=== PATIENT | female | born 1965 | race Caucasian/White ===

== ENCOUNTER 2018-04-10 09:30 | Inpatient (IN) | payer MEDICARE, MEDICAID ==
--- NOTE | 2018-04-10 09:41 | ED ---
Neurological HPI - HPI Summary HPI Summary: This pt is a 52 y/o female presenting to [facility] via EMS from [facility] for a seizure this morning. EMS reports pt had a seizure at 06:20 today and pt laid herself down. No trauma associated. Per EMS, staff stated yesterday pt started acting different and was not speaking much today. At baseline pt is able to speak all the time. Per EMS, today staff reported pt was shaking and had more noticeable slurred speech, and decided to call the ambulance. EMS states pt is repetitive, has a gaze to the right, and head turns to the right. Per EMS, BG is 105. Facility staff member, Cynthia Rios, reports pt had a seizure on the fast food shift lead , she did not witness it. Supply Chain Systems Manager notes pt has slurred speech, unable to form a sentence, shaking "uncontrollably," and can hardly move or walk. Additionally beehive kiln supervisor states pt has lost a lot of weight, "ever since she started taking Liverpool." Pt denies any pain. Pt was started on Liverpool 1 month ago. Per beehive kiln supervisor, pt was started on levothyroxine 02/04/18 and dose was decreased a couple days after this. PMHx: includes moderate MR, seizure disorder, impulse control disorder, hypothyroidism, leukopenia, hyponatremia. Per facility records, pt eats, grooms, and dresses independently. She is fully ambulatory. Pt will mimic same things as other and touches same thing as others. Pt needs directions to avoid others' spaces. Medications includes Depakote, zonegran, Tegretol. Today she was given Depakote and Tegretol. HPI is limited due to level 5 caveat - pt with MR. - History of Current Complaint Stated Complaint: AMS Hx Obtained From: Patient, Family/Supply Chain Systems Manager - beehive kiln supervisor, EMS, Medical Records Onset/Duration: Sudden Onset Timing: Sudden Onset Current Severity: Moderate Pain Intensity: 0 Pain Scale Used: 0-10 Numeric Character: Other: - POS: slurred speech, seizure, shaking Aggravating: Nothing Alleviating: Nothing Associated Signs and Symptoms: Positive: Seizure, Impaired Speech - slurred speech. Negative: Pain, Fever - Allergy/Home Medications Allergies/Adverse Reactions: Allergies Allergy/AdvReac Type Severity Reaction Status Date / Time No Known Allergies Allergy Verified 04/10/18 10:08 Home Medications: Home Medications Acetaminophen TAB* [Tylenol TAB*] 650 mg PO Q4H PRN 04/10/18 [History Confirmed 04/10/18] Carbamide Peroxide 6.5% OTIC* [DEBROX 6.5% Otic*] 4 drop BOTH EARS WEEKLY [History Confirmed 04/10/18] Divalproex ER TAB(*) [Depakote ER TAB(*)] 1,000 mg PO QAM 04/10/18 [History Confirmed 04/10/18] Divalproex ER TAB(*) [Depakote ER TAB(*)] 1,500 mg PO BEDTIME 04/10/18 [History Confirmed 04/10/18] Hydrocortisone 1% CREAM* [Hytone Cream 1%*] 1 applic TOPICAL QID PRN 04/10/18 [ History Confirmed 04/10/18] Levothyroxine TAB* [Synthroid TAB*] 112 mcg PO 0800 04/10/18 [History Confirmed 04/10/18] Liverpool Carbonate ER TAB* 900 mg PO BEDTIME 04/10/18 [History Confirmed 04/10/18 ] Neomycin/Polym/Bacit TOP OINT* [Neosporin TOP OINT TUBE*] 1 applic TOPICAL BID PRN 04/10/18 [History Confirmed 04/10/18] Zonisamide [Zonegran] 400 mg PO BEDTIME 04/10/18 [History Confirmed 04/10/18] carBAMazepine TAB(*) [TEGretol TAB(*)] 400 mg PO TID 04/10/18 [History Confirmed 04/10/18] PMH/Surg Hx/FS Hx/Imm Hx Endocrine/Hematology History: Reports: Hx Thyroid Disease - hypothyroidism, Other Endocrine/Hematological Disorders - POS: leukopenia, hyponatremia Neurological History: Reports: Hx Developmental Delay - moderate MR, Hx Seizures Psychiatric History: Reports: Other Psychiatric Issues/Disorders - Impulse control disorder - Family History Known Family History: Positive: Unknown - due to level 5 caveat - pt with MR - Social History Alcohol Use: None Substance Use Type: Reports: None Smoking Status (MU): Never Smoked Tobacco Review of Systems - ROS Summary Review of Systems Summary: ROS IS LIMITED DUE TO LEVEL 5 CAVEAT - pt with MR Constitutional: Other - POS: weight loss Negative: Fever Negative: Chest Pain Negative: Abdominal Pain Negative: Arthralgia, Myalgia Neurological: Other - POS: seizure, shaking uncontrollably, slurred speech All Other Systems Reviewed And Are Negative: No Physical Exam - Summary Physical Exam Summary: Constitutional: Well-developed, Well-nourished, Alert. (-) Distressed Skin: Warm, Dry HENT: Normocephalic; Atraumatic Eyes: Conjunctiva normal Neck: Musculoskeletal ROM normal neck. (-) JVD, (-) Stridor, (-) Tracheal deviation Cardio: Rhythm regular, rate normal, Heart sounds normal; Intact distal pulses; The pedal pulses are 2+ and symmetric. Radial pulses are 2+ and symmetric. (-) Murmur Pulmonary/Chest wall: Effort normal. (-) Respiratory distress, (-) Wheezes, (-) Rales Abd: Soft. (-) Tenderness, (-) Distension, (-) Guarding, (-) Rebound Musculoskeletal: (-) Edema Lymph: (-) Cervical adenopathy Neuro: Alert, Oriented x3, Strength normal, Cranial nerves II-XII are grossly intact, at baseline. (-) Dysmetria, (-) Nystagmus, (-) Ataxia by finger to nose testing, (-) Sensory deficit. Pt with slurred speech. Psych: Mood and affect Normal Triage Information Reviewed: Yes Vital Signs On Initial Exam: Temperature: 98.1 F Pulse: 83 Respiratory Rate: 19 O2 saturation: 100 Blood Pressure: 97/83 Vital Signs Reviewed: Yes Completion Of Physical Exam Limited Due To: Level 5 - pt with MR Diagnostics - Laboratory Result Diagrams: 04/10/18 09:16 04/10/18 09:16 Lab Statement: Any lab studies that have been ordered have been reviewed, and results considered in the medical decision making process. - Radiology Chest XR Radiology Interpretation Completed By: Radiologist Summary of Radiographic Findings: IMPRESSION: No active cardiopulmonary disease is noted. Dr. Joseph has reviewed this report. - CT Brain CT CT Interpretation Completed By: Radiologist Summary of CT Findings: IMPRESSION: No acute intracranial pathology. Multifocal encephalomalacia consistent with remote infarct. Dr. Joseph has reviewed this report. - EKG 10:15 Cardiac Rate: NL - at 76 bpm EKG Rhythm: Sinus Rhythm Summary of EKG Findings: No STEMI. NIH Scale - NIH Scale Level of Consciousness: Alert/Keenly Responsive Ask Patient the Month and His/Her Age: Both Correct Ask Pt to Open/Close Eyes and Recorder Helper Gravity Prospecting/Release Non-Paretic Hand: Both Correctly Best Gaze (Only Horizontal Eye Movement): Normal Visual Field Testing: No Visual Loss Facial Paresis-Pt to Smile & Close Eyes or Grimace Symmetry: Normal/Symmetrical Motor Function - Right Arm: No Drift-Holds 10 Seconds Motor Function - Left Arm: No Drift-Holds 10 Seconds Motor Function - Right Leg: No Drift-Holds 10 Seconds Motor Function - Left Leg: No Drift-Holds 10 Seconds Limb Ataxia-Must be out of Proportion to Weakness Present: Absent Sensory (Use Pinprick to Test Arms/Legs/Trunk/Face): Normal Best Language (Describe Picture, Name Items): No Aphasia Dysarthria (Read Several Words): Slurs Some Words Extinction and Inattention: No Abnormality Total Score: 1 Course/Dx - Course Assessment/Plan: Pt is a 52 y/o female, with hx of seizure disorder, who presents to the ED via EMS from [facility] for a seizure this morning. EMS reports pt had a seizure at 06:20 today and pt laid herself down. No trauma associated. Per EMS, staff stated yesterday pt started acting different and was not speaking much today. At baseline pt is able to speak all the time. Per EMS, today staff reported pt was shaking and had more noticeable slurred speech, and decided to call the ambulance. EMS states pt is repetitive, has a gaze to the right, and head turns to the right. Per EMS, BG is 105. Facility staff member, Cynthia Rios, reports pt had a seizure on the fast food shift lead, she did not witness it. Supply Chain Systems Manager notes pt has slurred speech, unable to form a sentence, shaking "uncontrollably," and can hardly move or walk. Additionally beehive kiln supervisor states pt has lost a lot of weight, "ever since she started taking Liverpool." Pt denies any pain. Labs show glucose of 112, TSH of 0.04, Free T4 of 1.29, valproic acid of 127, lithium of 1.49. Chest XR shows no active cardiopulmonary disease is noted. Brain CT shows No acute intracranial pathology. Multifocal encephalomalacia consistent with remote infarct. I discussed the case with Dr. Cedeño, hospitalist, who accepted the pt for admission. - Diagnoses Provider Diagnoses: Altered mental status, Liverpool toxicity, Seizure - Physician Notifications Discussed Care Of Patient With: Suzanne Davidson - hospitalist Time Discussed With Above Provider: 12:41 Instructed by Provider To: Admit As Inpatient Discharge - Sign-Out/Discharge Documenting (check all that apply): Patient Departure - [facility] All imaging exams completed and their final reports reviewed: Yes - Discharge Plan Condition: Stable Disposition: ADMITTED TO [facility] - Attestation Statements Document Initiated by Scribe: Yes Documenting Scribe: Yadi Kim Provider For Whom Scribe is Documenting (Include Credential): Marcel Joseph MD Scribe Attestation: IYadi, scribed for Marcel Joseph MD on 04/10/18 at 1822. Status of Scribe Document: Ready
[2018-04-10 10:25] LABS: ABS Basophils 0 10^3/ul (0-0.2); ABS Eosinophils 0 10^3/ul (0-0.6); ABS Lymphocytes 1.1 10^3/ul (1.0-4.8); ABS Monocytes 0.4 10^3/ul (0-0.8); ABS Neutrophils 4.3 10^3/ul (1.5-7.7); ABS Nucleated RBC 0 10^3/ul; Eosinophil % 0 %; Hematocrit 40 % (35-47); Hemoglobin 13.4 g/dl (12.0-16.0); Lymphocyte % 19.2 %; Mean Corpuscular HGB Conc 33 g/dl (31-36); Mean Corpuscular Hemoglobin 34 pg (27-31); Mean Corpuscular Volume 100 fL (80-97); Mean Platelet Volume 10.3 fL (7.4-10.4); Nucleated Red Blood Cells % 0.1; Platelet Count 210 10^3/ul (150-450); Red Blood Count 4.01 10^6/ul (4.00-5.40); Red Cell Distribution Width 14 % (10.5-15); White Blood Count 5.8 10^3/ul (3.5-10.8)
[2018-04-10 10:43] LABS: Albumin 3.4 g/dL (3.2-5.2); BUN/Creatinine Ratio 15.9 (8-20); Calcium 9.7 mg/dL (8.6-10.3); EGFR African American 119.2 (>60); EGFR Non-African American 98.5 (>60); Globulin 3.5 g/dL (2-4); Potassium 4.1 mmol/L (3.5-5.0); Total Bilirubin 0.3 mg/dL (0.2-1.0); Total Protein 6.9 g/dL (6.4-8.9)
[2018-04-10 11:04] LABS: Carbamazepine 9.1 mcg/mL (4.0-12.0); Lithium 1.49 mmol/L (0.6-1.2)
[2018-04-10 12:15] LABS: Urine Appearance Clear; Urine Bilirubin Negative (Negative); Urine Blood Negative (Negative); Urine Color Yellow; Urine Glucose Negative (Negative); Urine Ketones Negative (Negative); Urine Nitrite Negative (Negative); Urine Protein Negative (Negative); Urine Specific Gravity 1.006 (1.010-1.030); Urine Urobilinogen Negative (Negative)
[2018-04-10] MEDS ORDERED: Acetaminophen TAB* 325 MG PO PRN (12:48)
[2018-04-10] MEDS ORDERED: NS 0.9% 1000 ML* 1,000 ML IV SCH (13:00)
[2018-04-10 13:25] LABS: TSH (Thyroid Stimulating Horm) 0.04 mcIU/mL (0.34-5.60)
[2018-04-10 14:30] LABS: Activated Partial Thrombo Time 26.7 seconds (26.0-36.3); INR 0.86 (0.77-1.02)
[2018-04-10] MEDS: Heparin VIAL(*) 5000 UNITS/ML VIAL (FIVE THOUSAND) SUBCUT SCH ×2 (14:51→21:54)
[2018-04-10] MEDS: carBAMazepine TAB(*) 200 MG PO SCH ×2 (14:51→21:54)
[2018-04-10 15:38] LABS: Free T4 1.29 ng/dL (0.61-1.12)
--- NOTE | 2018-04-10 16:31 | HP ---
CC: Andreia Ocasio NP; Dr. Iraheta; Dr. Kirsten Boles, Psychiatry * HISTORY AND PHYSICAL: DATE OF ADMISSION: 04/10/18 PRIMARY CARE PROVIDER: Andreia Ocasio, nurse practitioner. ATTENDING PHYSICIAN WHILE IN THE HOSPITAL: Suzanne Cedeño MD * (report dictated by Ajay Gastelum NP) CHIEF COMPLAINT: 1. Slurred speech. 2. Seizure. 3. Altered mental status. HISTORY OF PRESENT ILLNESS: Ms. De Souza is a 52-year-old female patient with a history of a moderate intellectual developmental delay, who resides at a half-way in [place], who about a month ago was placed on Blain for behavioral control and mood control, who comes in today, who was noted by the staff that yesterday her speech seemed off, it seemed slurred. It was noted that since starting the lithium, she has also been noted to having tremors intermittently, which had been getting progressively worse in addition to this according to the staff who is with her and also this morning there was an episode of a seizure, which the last time she had a seizure was in 2017. The patient's staff member found her and she shaking. There was concern because her mentation seem to be off, she was having trouble finding her words and they brought her to the hospital. The patient does state that she had a seizure this morning, but she does not recall when it happened or what happened. She is really unable to tell me if her speech sounds different. There has been no reports of cough, fever, or chills. No vomiting or diarrhea. No abdominal pain. No reports of chest pain or shortness of breath and there was no reports again of any loss of consciousness, but because of the altered mental status with changes in the speech and the seizure, we were asked to evaluate for admission. PAST MEDICAL HISTORY: Significant for: 1. Seizures. 2. Intellectual developmental delay. 3. Impulse control disorder. 4. Hypothyroidism. 5. Cataracts. PAST SURGICAL HISTORY: Denied. MEDICATIONS: Home medications include: 1. Debrox 4 drops both ears weekly. 2. Neosporin 1 application topically b.i.d. as needed. 3. Synthroid 112 mcg p.o. daily. 4. Hydrocortisone 1 application topically 4 times a day as needed. 5. Tegretol 400 mg p.o. t.i.d. 6. Tylenol 650 mg every 4 hours as needed. 7. Depakote 1500 mg at bedtime and 1000 mg in the morning. 8. Zonegran 400 mg p.o. at bedtime. 9. Blain 900 mg p.o. at bedtime. ALLERGIES TO MEDICATIONS: No known drug allergies. FAMILY HISTORY: The mother is healthy. The father has a history of diabetes. SOCIAL HISTORY: She does not smoke, does not drink. She lives at an [place] half-way. Surrogate decision maker is her mother. REVIEW OF SYSTEMS: There is no documented fever. She is denying having any significant weight change. No double vision. No ear discharge. There was no rhinorrhea. No sore throat. No thyroid enlargement. There was no reported chest pain. No abdominal pain. No nausea, vomiting. No dysuria, no frequency , no seizures. No loss of consciousness. No pruritus and no skin ulcerations. Review of 14 systems completed, all others negative. PHYSICAL EXAMINATION GENERAL: At this time, Ms. De Souza is 52-year-old female patient. She is sitting in the ED stretcher. She does not appear to be in any acute distress. She appears to be well nourished and well developed. VITAL SIGNS: Blood pressure 148/83, pulse is 72, respirations 20, O2 sat 100%, temperature 98.1. HEENT: Head: Atraumatic and normocephalic. Eyes: EOMs intact. Sclerae anicteric and not pale. She does have a disconjugate gaze, which is at the baseline per the staff. Throat: Oral mucosa appears to be dry. No oropharyngeal erythema. NECK: Supple. LUNGS: Clear to auscultation. No wheezes, rales or rhonchi. HEART: Heart sounds, she had an S1, S2. Regular rate and rhythm. There are no murmurs, rubs or gallops. ABDOMEN: Soft. It was flat. It was nontender. Bowel sounds are present. EXTREMITIES: Pulses were 2+ throughout. She is moving all 4 extremities with 5/5 strength. She does have a tremor noted to the upper extremities. NEUROLOGICAL: She is awake. She is alert. She knows she is in the hospital. She knows her name. She does not know the month, but staff say that it is her baseline. Her speech to me again she seems clear. She was asking for water. She had no facial drooping. Her tongue is midline. She had equal palate rise. Finger- to-nose was intact. She is unable to do [id number] as it is difficult to examine given her intellectual developmental delay. She is able to take her socks and put her socks back on bilaterally. She is able to do that. She had no gross focal deficits that I could see. SKIN: Intact. DIAGNOSTIC STUDIES/LAB DATA: WBC of 5.8, RBC of 4.01, hemoglobin of 13.4, hematocrit of 40, platelet count was 210. Sodium was 138, potassium 4.1, chloride 107, bicarb 27, BUN was 10, creatinine of 0.63, glucose of 112. lactate 0.8, calcium 9.7. Total bili 0.3, AST 13, ALT 8, alk phos 83. Troponin 0. Albumin 3.4. Urine was negative. Toxicology, her lithium was 1.49 and carbamazepine was 9.1. She had a chest x-ray obtained today, showed no active cardiopulmonary disease. Brain CT obtained today showed no active intracranial pathology. Multifocal encephalomalacia consistent with remote infract. EKG shows a normal sinus rhythm with ST depression in lead I and aVL and V2 through V6. No previous for comparison. The QTc was 448. Old medical records reviewed. ASSESSMENT AND PLAN: Mrs. De Souza is a 52-year-old female patient with a history of seizures, impulse control disorder, coming into the ED today with complaints of altered mental status. She will be admitted under observation status for: 1. Altered mental status. 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 Her lithium level today was 1.49 and she took her lithium last night. I touch based with Dr. Iraheta, who evaluated. I will refer to his consult for details. The plan would be to hydrate her, stop her lithium. I tried calling several times that the patient's psychiatrist, Dr. Kirsten Boles, I was unable to leave message, but if we could get her report to her that would be helpful. We will certainly stop her lithium, monitor her neurologically. Repeat lithium level in the morning and continue to follow. We will hydrate her. I will also check Depakote level as well. I would check her Zonegran level. We will get ammonia levels, TSH, and B12 level as well and we will place her on telemetry due to the lithium, follow the QTc and continue to monitor. She does not appear to have any acute signs with the exception that she she has tremors and she has a little altered mental status, but again cardiac jasso, she appears to be stable. We will monitor. 2. History of seizures. She had a seizure today. The lithium could have caused this. We will go ahead and hold this. Continue her meds and monitor. Neurology is following. 3. Impulse control disorder. Continue with the meds prescribed. Hold lithium. 4. Intellectual developmental delay. Continue with supportive care. 5. Hypothyroidism. Checking a TSH. Continue her Synthroid. 6. DVT prophylaxis. She will be placed on heparin subcu. 7. Fluids, electrolytes, and nutrition. She can have a regular diet. TIME SPENT: On the admission was 60 minutes, greater than half the time spent face- to-face with the patient obtaining my history and physical; other half time spent going over the plan of care with the patient and implementing plan of care. I did discuss the plan of care with my attending, Dr. Cedeño; she is in agreement. AJAY GASTELUM, JUNE [id number]/CPS #: [id number] REYNA
--- NOTE | 2018-04-10 16:31 | CONS ---
NEUROLOGY CONSULTATION NOTE: DATE OF CONSULT: 04/10/18 CONSULTING PROVIDER: Dr. Joseph Joseph. REASON FOR CONSULT: Breakthrough seizure. CHIEF COMPLAINT: Slurred speech. HISTORY OF PRESENT ILLNESS: Ms. Dalila De Souza is a 52-year-old right-handed female who has developmental delay and intellectual disability since . The history was mostly obtained by reviewing the electronic medical record, discussing the case with other providers, and obtaining history from the patient 's caregiver, Cynthia, who was at bedside. [facility] Cynthia who has cared for the patient for years. Cynthia stated that the patient had possible seizure this morning. The patient was witnessed by staff to have eyes rolling in the back of the head and increased confusion before 7 a.m. this morning. The patient was confused and was slurring her words. Cynthia stated that she noticed the patient slurring her words yesterday evening at approximately 8 p.m. This is a constant problem. She also has associated lethargy. The last time the patient had a seizure was in 2016. The patient was recently started on lithium 900 mg nightly for reported bipolar disorder on January 2018. Cynthia stated that the patient was seen by the psychiatrist who did not like her behavior during the visit and hence started her on [place] and discontinued Celexa. Since the lithium, the patient has had reduced oral intake , she sleeps the majority of the time, and she has lost approximately 20 pounds over the last 6 months. The patient currently is in no acute distress. She is resting comfortably and very pleasant. A CT head without contrast was obtained on 04/10/18 that showed no acute intracranial abnormality. There are multifocal areas of encephalomalacia involving the right frontal lobe and bilateral occipital lobe consistent with prior infarcts. These findings may have been complication of hypoxic ischemic brain injury at . PAST MEDICAL HISTORY: Hypothyroidism, seizure disease, intellectual disability , developmental delay, and reported bipolar disorder. MEDICATIONS: 1. Neosporin topical ointment. 2. Levothyroxine 112 mcg in the morning. 3. Hydrocortisone cream. 4. Carbamazepine 400 mg p.o. t.i.d. 5. Acetaminophen 650 mg p.o. every 4 hours as needed. 6. Depakote extended release 1500 mg p.o. at bedtime and 1000 mg p.o. in the morning. 7. Zonisamide 400 mg p.o. at bedtime. 8. [place] carbonate extended release 900 mg p.o. at bedtime. 9. Carbamide peroxide 4 drops both ears weekly. ALLERGIES: No known drug allergies. FAMILY HISTORY: Unknown as the patient is unable to provide any family history. SOCIAL HISTORY: The [facility] lives in a [facility] facility. She has no reported alcohol or tobacco use. REVIEW OF SYSTEMS: The patient is unable to participate in a complete review of systems, although she did deny any headaches, visual disturbance, or focal weakness. A 14-point review of systems was obtained and otherwise negative, although I do not know exactly how accurate this is given her intellectual disability. PHYSICAL EXAM: Vitals: Temperature of 98.7, pulse of 76, respiratory rate of 18, oxygen saturation of 100, blood pressure 154/83. General: Well-nourished, well-developed female who has intellectual disability. Head: Normocephalic, without obvious abnormality. Eyes: Conjunctivae/cornea are clear. Neck is supple and symmetrical, with no carotid bruit. Lungs are clear to auscultation bilaterally, nonlabored breathing. Cardiovascular: Regular rate and rhythm with normal S1, S2. Extremities: Normal range of motion with no cyanosis. Skin : No skin lesions or lacerations. Psych: Flat affect and anxious mood. Neurological Examination: Mental Status: Awake, alert to self but not place or time. She is unaware of the general circumstance. She has moderate psychomotor slowing. She has spastic speech. Cranial Nerves: Normal confrontation testing bilaterally. No nystagmus. Sensation is intact on the forehead, cheeks, and jaw regions bilaterally. There is no facial droop. Symmetrical palatal elevation. Normal strength against shoulder resistance. Tongue is symmetrical and midline with no atrophy or fasciculation. Motor Examination: No abnormal movements or pronator drift. She does have slight tremors of the distal hands bilaterally. Strength overall is 5/5 bilaterally. Reflexes are 1+ throughout with absent at the ankles. Plantar responses are flexor bilaterally. Sensation is intact to light touch throughout. Coordination: The patient is unable to cooperate with coordination or gait testing. The patient was extremely hyperactive and wanted to touch the examiner every time the examiner attempted to examine her limb. For instance, the patient immediately touched the examiner's leg as soon as the examiner was assessing her range of motion on the right lower extremity. DIAGNOSTIC STUDIES/LAB DATA: WBC 5.8, hemoglobin of 13.4, hematocrit of 40, platelets of 210. Sodium of 138, potassium of 4.1, chloride of 107, BUN of 10, creatinine of 0.63, glucose of 112, AST and ALT 13 and 8 respectively. Vitamin B12 391. TSH is 0.04. Valproic acid level elevated at 127, carbamazepine 9.1, lithium 1.49. ASSESSMENT: Ms. 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 The patient was found to have an elevated valproic acid and lithium levels. 1. [place] and valproic acid toxicity - valproic acid will reduce the metabolism of lithium, hence increasing its level. Given that both medications are elevated, this is the likely cause of the patient's current slurred speech. Please note that lithium can also lower the seizure threshold, especially in a patient with history of epilepsy. The valproic acid level was checked after the morning dose of Depakote; hence, the trough level will need to be checked. 2. History of intellectual disability. 3. History of hypothyroidism with abnormal TSH. RECOMMENDATION: Please obtain the followin. Free T4 level. 2. Reduce valproic acid to 1000 mg twice daily. 3. Discontinue lithium. Abrupt discontinuation of lithium seems to be associated with increased risk of behavioral disturbance. Cynthia today informed me that the patient has episodes of compulsive behavior and not really a manicky or psychotic like state, and she was not sure why lithium was started in the first place. Therefore, monitor for any increase in agitation or aggressive behavior while off lithium, although we hopefully will not encounter this in this case. In addition, in clinical practice, lithium discontinuation should be gradual in chronic toxicity, but not typically in a patient patient that is having seizures that could be related to lithium toxicity, in which case I would recommend immediate discontinuation to prevent further seizures. 4. Neuro checks every 4 hours. 5. Recheck the valproic acid and lithium levels in the morning. 6. Continue IV fluids. Minimize any excessive water intake as the patient is at risk of primary polydipsia. 7. Monitor for breakthrough seizures. 8. Seizure precautions. 9. No need for further intracranial imaging. If the patient develops seizure- like activity, please obtain bedside routine EEG. TIME SPENT: I spent a total of 70 minutes of which more than 50% was spent obtaining history, evaluating and examining the patient, discussing the treatment plan with the patient and Cynthia as well as Ajay. [id number]/[facility] #: [id number] REYNA
[2018-04-10] MEDS ORDERED: Divalproex ER TAB(*) 500 MG PO SCH (21:00)
[2018-04-10] MEDS: Divalproex ER TAB(*) 500 MG PO SCH (21:51)
[2018-04-10] MEDS: ZONISAMIDE 50 MG PO SCH (21:51)
[2018-04-11] MEDS: Heparin VIAL(*) 5000 UNITS/ML VIAL (FIVE THOUSAND) SUBCUT SCH ×3 (05:22→21:08)
[2018-04-11 05:40] LABS: ABS Basophils 0 10^3/ul (0-0.2); ABS Eosinophils 0 10^3/ul (0-0.6); ABS Lymphocytes 2.8 10^3/ul (1.0-4.8); ABS Monocytes 0.5 10^3/ul (0-0.8); ABS Neutrophils 2.3 10^3/ul (1.5-7.7); ABS Nucleated RBC 0 10^3/ul; Eosinophil % 0.8 %; Hematocrit 36 % (35-47); Lymphocyte % 48.8 %; Mean Corpuscular HGB Conc 34 g/dl (31-36); Mean Corpuscular Hemoglobin 33 pg (27-31); Mean Corpuscular Volume 99 fL (80-97); Mean Platelet Volume 10.2 fL (7.4-10.4); Nucleated Red Blood Cells % 0.1; Platelet Count 186 10^3/ul (150-450); Red Cell Distribution Width 14 % (10.5-15); White Blood Count 5.7 10^3/ul (3.5-10.8)
[2018-04-11 05:45] LABS: INR 0.9 (0.77-1.02)
[2018-04-11 05:59] LABS: BUN/Creatinine Ratio 11.3 (8-20); Calcium 8.9 mg/dL (8.6-10.3); EGFR African American 145.5 (>60); EGFR Non-African American 120.2 (>60); Potassium 3.6 mmol/L (3.5-5.0)
[2018-04-11] MEDS ORDERED: Levothyroxine TAB* 112 MCG TAB PO SCH (06:00)
[2018-04-11 06:25] LABS: Lithium 0.96 mmol/L (0.6-1.2)
[2018-04-11] MEDS: carBAMazepine TAB(*) 200 MG PO SCH ×3 (07:44→21:05)
[2018-04-11] MEDS: Divalproex ER TAB(*) 500 MG PO SCH ×2 (09:02→21:05)
--- NOTE | 2018-04-11 16:50 | PN ---
Subjective Date of Service: 04/11/18 Interval History: Pt seen and examined. Meds and labs reviewed. CC: N/A ROS: Unable to reliably obtain 14 point ROS given pt is from [facility] PHYSICAL EXAM: GEN APPEARANCE: Awake, agitated but redirectable, not in acute distress HEENT: NC/AT, PERRLA, moist oral mucosa, (-) throat erythema NECK: Soft, supple, (-) cervical LAD, (-)JVD HEART: S1S2 WNL, RRR, No MRG CHEST: CTA, BL, GAE, No W/R/R ABD: Soft, ND/NT, NABS 4x Q EXT: No C/C/E SKIN: Warm to touch PSYCH: No active psychosis, hallucinations, depression, SI/HI Objective Active Medications: Acetaminophen (Tylenol Tab*) 650 mg PO Q4H PRN PRN Reason: FEVER/PAIN Carbamazepine (Tegretol Tab(*)) 400 mg PO TID [facility] Last Admin: 04/11/18 13:52 Dose: 400 mg Divalproex Sodium (Depakote Er Tab(*)) 1,000 mg PO QAM [facility] Last Admin: 04/11/18 09:02 Dose: 1,000 mg Divalproex Sodium (Depakote Er Tab(*)) 1,000 mg PO BEDTIME [facility] Last Admin: 04/10/18 21:51 Dose: 1,000 mg Heparin Sodium (Porcine) (Heparin Vial(*)) 5,000 units SUBCUT Q8HR [facility] Last Admin: 04/11/18 13:52 Dose: 5,000 units Levothyroxine Sodium (Synthroid Tab*) 100 mcg PO 0600 [facility] Zonisamide (Zonegran (Nf)) 400 mg PO BEDTIME [facility] Last Admin: 04/10/18 21:51 Dose: 400 mg Vital Signs - 8 hr 04/11/18 04/11/18 11:02 15:32 Temperature 98.0 F 97.3 F Pulse Rate 67 67 Respiratory 20 16 Rate Blood Pressure 134/77 155/74 (mmHg) O2 Sat by Pulse 100 100 Oximetry Oxygen Devices in Use Now: None Result Diagrams: 04/11/18 05:25 04/11/18 05:25 Microbiology and Other Data: Microbiology 04/10/18 09:15 Aerobic Blood Culture - Preliminary Blood Venous No Growth Day 1 Anaerobic Blood Culture - Preliminary No Growth Day 1 04/10/18 09:25 Aerobic Blood Culture - Preliminary Blood Venous No Growth Day 1 Anaerobic Blood Culture - Preliminary No Growth Day 1 Assess/Plan/Problems-Billing Assessment: - Patient Problems (1) Altered mental status Current Visit: Yes Status: Acute Code(s): R41.82 - ALTERED MENTAL STATUS, UNSPECIFIED SNOMED Code(s): 723353022 Comment: -Likely due to [place] and valproic acid toxicity -Valproic acid is known to increase lithium levels and together w/recent increase may have led to elevated and lithium is known to cause lowering of seizure threshold -Appreciate Dr. Butts input -Both levels today are WNL -Per childcare provider at bedside, agitation observed this AM is pts baseline -Per childcare provider, pts family does not want her back on [place] especially given her father also had some side effects from it in the past (2) Seizure disorder Current Visit: Yes Status: Acute Code(s): G40.909 - EPILEPSY, UNSP, NOT INTRACTABLE, WITHOUT STATUS EPILEPTICUS SNOMED Code(s): 724813602 Comment: -Continue Lowered dose of Valproic acid and continue to hold [place] -continue Carbamazepine and Zonisamide -Per childcare provider, pts family does not want her back on [place] especially given her father also had some side effects from it in the past -Appreciate Dr. Butts input (3) Hypothyroidism Current Visit: Yes Status: Acute Code(s): E03.9 - HYPOTHYROIDISM, UNSPECIFIED SNOMED Code(s): 59377568 Comment: -TSH mildly suppressed while FT4 mildly elevated -Will decrease Levothyroxine to 100 mcg and for outpt repeat of TFTs in 6 weeks (4) DVT prophylaxis Current Visit: Yes Status: Acute Code(s): [id number] - SNOMED Code(s): 572020644 Comment: -Continue Heparin [id number] Status and Disposition: -Possible D/C in AM -For PT eval
[2018-04-11] MEDS: ZONISAMIDE 50 MG PO SCH (21:06)
[2018-04-12] MEDS: Heparin VIAL(*) 5000 UNITS/ML VIAL (FIVE THOUSAND) SUBCUT SCH (05:21)
[2018-04-12 05:50] LABS: ABS Basophils 0 10^3/ul (0-0.2); ABS Eosinophils 0.1 10^3/ul (0-0.6); ABS Lymphocytes 2.9 10^3/ul (1.0-4.8); ABS Monocytes 0.8 10^3/ul (0-0.8); ABS Neutrophils 2.1 10^3/ul (1.5-7.7); ABS Nucleated RBC 0 10^3/ul; Eosinophil % 0.9 %; Hematocrit 39 % (35-47); Hemoglobin 13.1 g/dl (12.0-16.0); Lymphocyte % 49.6 %; Mean Corpuscular HGB Conc 34 g/dl (31-36); Mean Corpuscular Hemoglobin 33 pg (27-31); Mean Corpuscular Volume 99 fL (80-97); Mean Platelet Volume 10.4 fL (7.4-10.4); Nucleated Red Blood Cells % 0.1; Platelet Count 194 10^3/ul (150-450); Red Blood Count 3.92 10^6/ul (4.00-5.40); Red Cell Distribution Width 14 % (10.5-15); White Blood Count 5.9 10^3/ul (3.5-10.8)
[2018-04-12] MEDS ORDERED: Levothyroxine TAB* 100 MCG TAB PO SCH (06:00)
[2018-04-12 06:16] LABS: Albumin 3.2 g/dL (3.2-5.2); BUN/Creatinine Ratio 9.8 (8-20); Calcium 9.2 mg/dL (8.6-10.3); EGFR African American 152.1 (>60); EGFR Non-African American 125.7 (>60); Globulin 3.3 g/dL (2-4); Magnesium 2.2 mg/dL (1.9-2.7); Phosphorus 3.9 mg/dL (2.5-5.0); Potassium 3.3 mmol/L (3.5-5.0); Total Bilirubin 0.4 mg/dL (0.2-1.0); Total Protein 6.5 g/dL (6.4-8.9)
[2018-04-12 07:51] VITALS: BP 149/70
[2018-04-12] MEDS: Divalproex ER TAB(*) 500 MG PO SCH (07:52)
[2018-04-12] MEDS: carBAMazepine TAB(*) 200 MG PO SCH (07:54)
[2018-04-12] MEDS ORDERED: Potassium Chlor TAB* 20 MEQ TAB.ER PO STA (10:03)
--- NOTE | 2018-04-12 13:58 | DS ---
CC: Dr. Suzanne Cedeño; Dr. Joseph Joseph, Dr. Kade Iraheta; * DISCHARGE SUMMARY: DATE OF ADMISSION: DATE OF DISCHARGE: 04/12/18 DISCHARGE DIAGNOSES: As follows: 1. Altered mental status likely due to toxic valproic acid and lithium levels, resolved. 2. Seizure disorder and threshold lowering due to lithium toxicity. 3. History of hypothyroidism, TSH mildly suppressed and free T4 mildly elevated. DISCHARGE MEDICATIONS: As follows: 1. Carbamazepine 400 mg p.o. t.i.d. 2. Depakote 1000 mg p.o. q.h.s. and 1000 mg p.o. q.a.m. 3. Levothyroxine 100 mcg p.o. daily. 4. Zonisamide 400 mg p.o. q.h.s. 5. Tylenol 650 mg p.o. q.4 p.r.n. 6. Debrox 4 drops both ears q. weekly. 7. Hydrocortisone cream 1 application topically 4 times a day. 8. Neosporin topical ointment 1 application topically b.i.d. p.r.n. HISTORY OF PRESENT ILLNESS/HOSPITAL COURSE: The patient is a 52-year-old lady with history of moderate intellectual developmental delay, who resides at a fdc in [employer], who about a month ago was placed on lithium for behavioral control and mood control, where a nurse at bedside mentioned that she was started on high dose of lithium. Since starting lithium , she has been noted to have tremors intermittently and getting progressively worse. In addition to this, the patient was having some shaking/tremors and had seizure the morning prior to admission. Upon evaluation, it was thought that her altered mental status is due to lithium and valproic toxicity given their high levels on presentation, which subsequently became normalized the following day upon hydration and discontinuation of lithium and decreased dose of Depakote. Carbamazepine and zonisamide were continued upon the advice of Dr. Irahtea who saw the patient in consultation. It is thought that the valproic acid is may have led to her increased lithium levels and together with recent increase of lithium may have led to elevated lithium levels known to cause lowering of seizure threshold. The patient was subsequently evaluated by Dr. Iraheta prior to discharge who agrees that the patient can be safely discharged back to her facility and for patient to follow up with her neurologist who follows her up for seizures and to keep her usual appointments. [facility] facility had been advised to have the followup and/or call her PCP within 3 days post DC. If her symptoms resume or develop new ones or feel unwell for any reason, to call her PCP first and if her PCP cannot entertain her due to scheduling issues alone, to call [facility] if the issue is nonemergent. She was advised to have her TSH rechecked in 6 weeks given the data above suggest a slight over correction of her hypothyroidism. She was advised to call my office regarding any questions, concerns, or further clarifications regarding her discharge plans and her prescriptions and to take her medications as prescribed. REVIEW OF SYSTEMS: Could not be reliably obtained given her developmental delay. PHYSICAL EXAMINATION: Shows most recent vital signs of record: Blood pressure 149/70, 68 beats per minute heart rate, 97.4 degrees Fahrenheit, 18 per minute respiratory rate, saturating at 100% room air. General Appearance: The patient is awake, alert and oriented, not in acute distress. HEENT: Normocephalic, atraumatic. PERRLA. Extraocular muscles intact. Negative for icterus. Moist oral mucosa. Negative throat erythema. Neck: Soft, supple with no cervical lymphadenopathy. No JVD. Heart: S1, S2 within normal limits. Regular rate and rhythm. No murmurs, rubs or gallops. Chest: Clear to auscultation bilaterally. Good air entry. No wheezes, rales or rhonchi. Abdomen is soft, nondistended, nontender. Normoactive bowel sounds x4 quadrants. Extremities: No cyanosis, clubbing or edema. Psychiatric: No active psychosis, depression, suicidal or homicidal ideation. Skin is warm to touch. TIME SPENT: The total time spent evaluating the patient, reviewing pertinent data and appropriate documentation is 65 minutes. [id number]/[facility] #: [id number] [facility]
--- NOTE | 2018-04-12 15:41 | PN ---
Subjective Date of Service: 04/12/18 Length of Stay: 2 Days Neurology is following for slurred speech and breakthrough seizure in the setting of lithium and valproic acid toxicity. Interval History: She is feeling well today. She wants to go home. She has no acute complain. She has not had any seizures since her admission. Review of Systems: Denied CP, SOB, or palpitations. Objective Active Medications: Acetaminophen (Tylenol Tab*) 650 mg PO Q4H PRN PRN Reason: FEVER/PAIN Carbamazepine (Tegretol Tab(*)) 400 mg PO TID [facility] Last Admin: 04/12/18 07:54 Dose: 400 mg Divalproex Sodium (Depakote Er Tab(*)) 1,000 mg PO QAM [facility] Last Admin: 04/12/18 07:52 Dose: 1,000 mg Divalproex Sodium (Depakote Er Tab(*)) 1,000 mg PO BEDTIME [facility] Last Admin: 04/11/18 21:05 Dose: 1,000 mg Heparin Sodium (Porcine) (Heparin Vial(*)) 5,000 units SUBCUT Q8HR [facility] Last Admin: 04/12/18 05:21 Dose: 5,000 units Levothyroxine Sodium (Synthroid Tab*) 100 mcg PO 0600 [facility] Last Admin: 04/12/18 05:21 Dose: 100 mcg Zonisamide (Zonegran (Nf)) 400 mg PO BEDTIME [facility] Last Admin: 04/11/18 21:06 Dose: 400 mg Vital Signs 04/11/18 04/11/18 04/11/18 19:27 21:43 23:15 Temperature 97.4 F 97.5 F Pulse Rate 68 66 Respiratory 16 18 16 Rate Blood Pressure 150/78 135/71 (mmHg) O2 Sat by Pulse 100 99 Oximetry 04/12/18 04/12/18 04/12/18 03:15 07:35 08:00 Temperature 97.4 F 97.4 F Pulse Rate 73 68 Respiratory 18 18 18 Rate Blood Pressure 159/77 149/70 (mmHg) O2 Sat by Pulse 100 100 Oximetry Intake and Output Last 24 Hours 04/10/18 04/11/18 04/12/18 04/13/18 06:59 06:59 06:59 06:59 Intake Total 995 4100 Output Total 1200 7600 Balance -205 -3500 Weight 184 lb 3.2 oz Intake: IV Fluids 995 Oral 0 4100 Output: Urine 1200 7600 Other: # Voids 3 5 Oxygen Devices in Use Now: None Neurology Exam: General: Well nourished and well appearing female in no acute distress. HEENT: Normocephalic/atraumatic, sclera anicteric, mucous membranes moist Neck: Supple Extremities: No clubbing, cyanosis, or edema Neurological Findings: Awake, alert and oriented to self, place and time. She has moderate psychomotor slowing at baseline. Speech: fluent without dysrhythmia, repetition intact Cranial Nerve: PERRL, EOM-I, no facial asymmetry. Motor: s/s throughout, proximal and distal extremities x4 tone/bulk normal Sensation: intact to LT/PP bilaterally upper and lower extremities Deep Tendon Reflex: 2+ symmetric in the upper/lower extremities, Babinski - down going Finger to nose, rapid alternating movements intact without tremor, no dysdiadochokinesia Gait: intact with good arm swing and stride Result Diagrams: 04/12/18 05:25 04/12/18 05:25 Additional Lab and Data: Zonisamide: 15 Valproic acid: 96 [place]: 0.96 Microbiology and Other Data: Microbiology 04/10/18 09:15 Aerobic Blood Culture - Preliminary Blood Venous No Growth Day 1 Anaerobic Blood Culture - Preliminary No Growth Day 1 04/10/18 09:25 Aerobic Blood Culture - Preliminary Blood Venous No Growth Day 1 Anaerobic Blood Culture - Preliminary No Growth Day 1 Assessment/Plan 1. Breakthrough seizures- continue current regiment Carbamazepine (Tegretol Tab(*)) 400 mg PO TID [facility] Divalproex Sodium (Depakote Er Tab(*)) 1,000 mg PO QAM [facility] Divalproex Sodium (Depakote Er Tab(*)) 1,000 mg PO BEDTIME [facility] Zonisamide (Zonegran (Nf)) 400 mg PO BEDTIME [facility] 2. [place] and valproic acid toxicity- lithium discontinued. She has no evidence of psychosis or acute mood disorder. Continue Depakote 1,000 mg ER twice daily. 3. Hypothyroidism- levothyroxine dose was reduced to 100 mcg. We will arrange a follow-up with us in 3-4 weeks.
== END 2018-04-12 16:07 | DRG 948 ==
LOC: ED 09:30 → MEDTELE 12:41 → OBSVTOIN 04-11 15:32
PROVIDERS: ADMIT Internal Medicine; ATTEND Student in an Organized Health Care Education/Training Program
DX: R41.82 Altered mental status, unspecified (principal); F88 Other disorders of psychological development; F79 Unspecified intellectual disabilities; E03.9 Hypothyroidism, unspecified; G40.909 Epilepsy, unspecified, not intractable, without status epilepticus; T42.6X5A Adverse effect of other antiepileptic and sedative-hypnotic drugs, initial encounter; R47.81 Slurred speech; F63.9 Impulse disorder, unspecified; R29.701 NIHSS score 1; F31.9 Bipolar disorder, unspecified; H26.9 Unspecified cataract; Z83.3 Family history of diabetes mellitus; Y92.9 Unspecified place or not applicable
CPT/HCPCS: 36415; 70450; 71045; 80048; 80053; 80156; 80164; 80178; 80203; 81003; 82140; 82607; 83605; 83735; 84100; 84439; 84443; 84484; 85025; 85610; 85730; 87040; 93005; 99284; A9270-GY; G8978-GP-CH; G8979-GP-CH; G8980-GP-CH; J1644